=== PATIENT | male | born 1940 | race Caucasian/White ===

== ENCOUNTER 2020-03-30 20:39 | Emergency (ER) | payer MEDICARE, OTHER ==
[2020-03-30 22:47] LABS: HEMOGLOBIN 13.9 gm/dl (14.0-17.5); RED BLOOD COUNT 4.51 M/UL (4.20-5.50); WHITE BLOOD COUNT 7.9 K/UL (4.5-11.0)
[2020-03-31] MEDS ORDERED: ZOFRAN ODT 4 MG4 MG PO (00:10)
[2020-03-31] MEDS ORDERED: FLOMAX0.4 MG PO (00:10)
[2020-03-31] MEDS ORDERED: HYDROCODON-ACE1 EAC4 PO (00:21)
== END 2020-03-31 00:30 | disposition home or self-care (01) ==
LOC: ER1 20:39
PROVIDERS: Physician Assistant
DX: N13.2 Hydronephrosis with renal and ureteral calculous obstruction (principal); N28.9 Disorder of kidney and ureter, unspecified; I10 Essential (primary) hypertension
CPT/HCPCS: 80053; 81001; 83690; 85025; 96374; 96375; 99284; J2270; J2405